=== PATIENT | male | born 1975 ===

== ENCOUNTER 2018-02-04 15:27 | Emergency (ER) | payer OTHER ==
[2018-02-04 15:33] VITALS: BP 115/77; PULSE 73; RESP 16; TEMP 98.8; O2SAT 98
--- NOTE | 2018-02-04 16:34 | C.PDOC ---
History Of Present Illness 42 year old male presents to the ED for evaluation of right-sided neck pain that radiates down to right shoulder x 3 days. Patient has been taking Ibuprofen and Tylenol without relief. He has not taken any medicine today. He denies chest pain, shortness of breath, change in sensation or recent trauma/ injuries. Time Seen by Provider: 02/04/18 15:32 Chief Complaint (Nursing): Upper Extremity Problem/Injury History Per: Patient, Family History/Exam Limitations: no limitations Onset/Duration Of Symptoms: Days (3) Current Symptoms Are (Timing): Still Present Quality: "Pain" Additional History Per: Patient Past Medical History Reviewed: Historical Data, Nursing Documentation, Vital Signs Vital Signs: Last Vital Signs Temp 98.8 F 02/04/18 15:31 Pulse 73 02/04/18 15:31 Resp 16 02/04/18 15:31 BP 115/77 02/04/18 15:31 Pulse Ox 98 02/04/18 17:39 - Medical History PMH: No Chronic Diseases Denies: HIV, Chronic Kidney Disease Surgical History: No Surg Hx Family History: States: Unknown Family Hx - Social History Hx Alcohol Use: No Hx Substance Use: No Review Of Systems Cardiovascular: Negative for: Chest Pain Respiratory: Negative for: Shortness of Breath Musculoskeletal: Positive for: Neck Pain (right), Shoulder Pain (right) Neurological: Negative for: Weakness, Numbness Physical Exam - Physical Exam Appears: Non-toxic, No Acute Distress Skin: Normal Color, Warm, Dry Head: Atraumatic, Normacephalic Eye(s): bilateral: Normal Inspection, EOMI Nose: Normal Oral Mucosa: Moist Throat: Normal, No Erythema, No Exudate Neck: Normal ROM, Paracervical Tenderness (right-sided), Supple Lymphatic: Normal Exam Chest: Symmetrical Cardiovascular: Rhythm Regular Respiratory: Normal Breath Sounds, No Accessory Muscle Use Back: Muscle Spasm (mild ), Other (trapezius tenderness ) Extremity: Normal ROM, Capillary Refill (less than 2 seconds ) Neurological/Psych: Oriented x3, Normal Speech, Normal Cognition, Normal Motor, Normal Sensation ED Course And Treatment O2 Sat by Pulse Oximetry: 98 (on RA) Pulse Ox Interpretation: Normal Progress Note: Flexeril PO and Toradol IM given. On re-examination, patient is resting comfortably, showing no signs of distress and reports an improvement in his symptoms. Patient is stable for discharge. Advised to f/u with PMD within 1- 2 days for further evaluation and/or return to the ED if symptoms persist or worsen. Disposition - Disposition Referrals: [facility] at [facility] [Outside] Disposition: HOME/ ROUTINE Disposition Time: 16:33 Condition: STABLE Additional Instructions: Vaya a vega mdico o la clnica en 2-3 delaney sin falta, para mas evaluacin. [place] los medicamentos shoaib indicado. Volver a la maryellen de emergencia en cualquier momento si los sntomas persisten o empeoran. 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 - Scribe Statement The provider has reviewed the documentation as recorded by the Scribe (Bhavana Schaeffer) All medical record entries made by the Scribe were at my direction and personally dictated by me. I have reviewed the chart and agree that the record accurately reflects my personal performance of the history, physical exam, medical decision making, and the department course for this patient. I have also personally directed, reviewed, and agree with the discharge instructions and disposition.
== END 2018-02-04 16:49 | disposition home or self-care (01) ==
LOC: C.ER 15:27
DX: S16.1XXA Strain of muscle, fascia and tendon at neck level, initial encounter (principal); X58.XXXA Exposure to other specified factors, initial encounter; Y92.9 Unspecified place or not applicable; M43.6 Torticollis
CPT/HCPCS: 96372; 99283; J1885

== ENCOUNTER 2018-03-25 19:41 | Emergency (ER) | payer SELFPAY ==
--- NOTE | 2018-03-25 19:59 | C.PDOC ---
History Of Present Illness 42 yo male w/o significant PMHx come in for evaluation of Left foot puncture wound sustained early today " when stepped on nail outside". Pt reports, developed some pain over puncture wound over day. Denies fever, chills, wound discharge, redness, denies weakness, sensory or vascular deficits to Left foot. Ambulate to ED for evaluation, not in any apparent distress. Time Seen by Provider: 03/25/18 19:49 Chief Complaint (Nursing): Lower Extremity Problem/Injury History Per: Patient Past Medical History Reviewed: Historical Data, Nursing Documentation, Vital Signs Vital Signs: Last Vital Signs Temp 98.1 F 03/25/18 19:55 Pulse 73 03/25/18 19:55 Resp 20 03/25/18 19:55 BP 120/78 03/25/18 19:55 Pulse Ox 97 03/25/18 19:55 - Medical History PMH: No Chronic Diseases Denies: HIV, Chronic Kidney Disease Family History: States: Unknown Family Hx - Social History Hx Alcohol Use: No Hx Substance Use: No - Immunization History Hx Tetanus Toxoid Vaccination: Yes Hx Pneumococcal Vaccination: Yes Review Of Systems Except As Marked, All Systems Reviewed And Found Negative. Constitutional: Negative for: Fever, Chills ENT: Negative for: Throat Pain Musculoskeletal: Positive for: Foot Pain Skin: Positive for: Lesions Neurological: Negative for: Weakness, Numbness Physical Exam - Physical Exam Appears: Well, Non-toxic, No Acute Distress Skin: Normal Color, Warm, Other (small puncture wound over left plantar aspect over 4th MT bone,mild tenderness. No edema, no erythema, no wound discharge, no proximal streaking.) Extremity: Normal ROM (Left foot), Tenderness (mild left sole), No Pedal Edema, Capillary Refill (less than 2sec to Left foot), No Deformity, No Swelling DTR: Ankle (L): 2+ Neurological/Psych: Oriented x3, Normal Speech, Normal Motor, Normal Sensation, Normal Reflexes ED Course And Treatment Progress Note: On re-eval, pt is afebrile, hemodynamicaly stable. Non-toxic. Ambulatory in ED with stable gait. Left foot: (+) small puncture wound over plantar aspect, NO cellulitis. tetanus, oral abx given. Pt advised on wound care. ref. to f/u with Podiatry in 2-3 days for re-eavl. return if any new changes. Disposition Counseled Patient/Family Regarding: Diagnosis, Need For Followup, Rx Given - Disposition Referrals: [facility] [Outside] Disposition: HOME/ ROUTINE Disposition Time: 20:00 Condition: STABLE Additional Instructions: Warm salty water foot soaks daily Take medication as prescribed Follow up with Podiatry clinic on Friday from [facility] for further evaluation as need Return if any new changes. Prescriptions: Ciprofloxacin [Cipro] 1 tab PO BID #14 tab Ibuprofen [Motrin Tab] 600 mg PO BID #10 tab Instructions: Wound Care (DC) Forms: [employer] (Barbadian) Print Language: DJIBOUTIAN - Clinical Impression Clinical Impression: Puncture wound
[2018-03-25 20:02] VITALS: BP 120/78; PULSE 73; RESP 20; TEMP 98.1; O2SAT 97
[2018-03-25] MEDS ORDERED: Tdap Vaccine 0.5 ml Vial (10-64 yrs) IM ONE ×2 (20:14→20:30)
== END 2018-03-25 20:41 | disposition home or self-care (01) ==
LOC: C.ER 19:41
DX: S91.332A Puncture wound without foreign body, left foot, initial encounter (principal); W45.0XXA Nail entering through skin, initial encounter